=== PATIENT | female | born 1990 | race Caucasian/White ===

== ENCOUNTER 2017-06-12 10:16 | Emergency (ER) | END 2017-06-12 13:01 | disposition home or self-care (01) ==

== ENCOUNTER 2018-03-30 10:03 | Emergency (ER) | payer OTHER ==
[~2018-03-30] VITALS: Ht 160 cm; Wt 124.0 kg
[~2018-03-30 10:03] MED LIST: DOXY100T20 PO
[2018-03-30 10:10] VITALS: BP 108/71; PULSE 90; RESP 18; Ht 160 cm; Wt 124.0 kg
[2018-03-30] MEDS ORDERED: ONDANSETRON (ODT) 4 MG TAB ODT STA (10:44)
[2018-03-30] MEDS ORDERED: LOPE2CAP PO (10:54)
[2018-03-30] MEDS ORDERED: ACET500C5 PO (10:54)
--- NOTE | 2018-03-30 10:56 | ERD ---
ER Documentation Chief Complaint Chief Complaint diarrhea x 3 days HPI 27-year-old female presents with diarrhea for last 3 days. There is no blood or mucus. She has nausea without vomiting. She denies fever. She is here with her children with similar symptoms. Denies foreign travel or suspect food. Denies or dysuria. ROS All systems reviewed and are negative except as per history of present illness. Medications Home Meds Active Scripts Acetaminophen* (Tylophen*) 500 Mg Capsule, 1 CAP PO Q6H PRN for PAIN AND OR ELEVATED TEMP, #20 CAP Prov:SUNSHINE DA SILVA MD 03/30/18 Loperamide Hcl* (Imodium*) 2 Mg Capsule, 2 MG PO .AFTER EA LOOSE BM PRN for DIARRHEA, #10 TAB Prov:SUNSHINE DA SILVA MD 03/30/18 Doxycycline Hyclate* (Doxycycline Hyclate*) 100 Mg Tablet.dr, 100 MG PO BID for 10 Days, TAB Prov:SUNSHINE DA SILVA MD 06/12/17 Allergies Allergies: Coded Allergies: No Known Drug Allergies (Verified Allergy, Unknown, 03/30/18) PMhx/Soc History of Surgery: Yes (C SECTION ) Anesthesia Reaction: No Hx Neurological Disorder: No Hx Respiratory Disorders: No Hx Cardiac Disorders: No Hx Psychiatric Problems: No Hx Miscellaneous Medical Probl: No Hx Alcohol Use: No Hx Substance Use: No Hx Tobacco Use: No Smoking Status: Never smoker FmHx Family History: No diabetes, No coronary disease, No other Physical Exam Vitals Vital Signs Date Temp Pulse Resp B/P (MAP) Pulse Ox O2 O2 Flow FiO2 Time Delivery Rate 03/30/18 98.0 90 18 108/71 97 10:10 (83) Physical Exam Const: No acute distress. Obese. Head: Atraumatic Eyes: Normal Conjunctiva ENT: Normal External Ears, Nose and Mouth. Neck: Full range of motion. No meningismus. Resp: Clear to auscultation bilaterally Cardio: Regular rate and rhythm, no murmurs Abd: Soft, non tender, non distended. Normal bowel sounds Skin: No petechiae or rashes Back: No midline or flank tenderness Ext: No cyanosis, or edema Neur: Awake and alert Psych: Normal Mood and Affect Results 24 hrs Current Medications Medications Dose Sig/Aiyana Start Time Status Last (Trade) Ordered Route PRN Stop Time Admin Dose Reason Admin 650 mg ONCE ONCE 03/30/18 Acetaminophen PO 11:00 03/30/18 (Tylenol 11:01 Tab) Ondansetron 8 mg ONCE STAT 03/30/18 DC HCl (Zofran ODT 10:44 03/30/18 Odt) 10:45 Procedures/MDM Presents with diarrhea for 3 days with essentially normal exam. She has no signs of abdominal pain, shortness of breath, hypoxemia. Given the history and contacts he likely has viral gastroenteritis. Will treat with Imodium, Tylenol, further observation and home and return precautions. The patient was stable with no new complaints during the ER course. Clinically, there is no current evidence to suggest meningitis, sepsis, acute abdomen, pneumonia, stroke, acute coronary syndrome, pulmonary embolism, aortic dissection or any other emergent condition appearing to require further evaluation or hospitalization. Patient counseled regarding my diagnostic impression and care plan. Prior to discharge all questions answered. Pt agrees with treatment plan and understands strict return precautions. Pt is instructed to follow up with primary care provider within 24-48 hours. Precautionary instructions provided including instructions to return to the ER if not improving or for any worsening or changing symptoms or concerns. Departure Diagnosis: Primary Impression: Diarrhea Diarrhea type: unspecified type Qualified Codes: R19.7 - Diarrhea, unspecified Condition: Stable Patient Instructions: Treating Diarrhea, Diarrhea, Viral (Child) (Adult) Additional Instructions: Probablamente un virus que dura 2-4 browne. cheque otro vez en el proximo morales para mas simptomas- vomito, dolor, jyotsna, problemas con respirando, o con ling doctor primario. SUNSHINE DA SILVA MD Mar 30, 2018 10:56
[2018-03-30] MEDS ORDERED: ACETAMINOPHEN 325 MG TAB PO ONE (11:00)
== END 2018-03-30 11:09 | disposition home or self-care (01) ==
LOC: FTE 10:03
DX: R19.7 Diarrhea, unspecified (principal); R11.2 Nausea with vomiting, unspecified
CPT/HCPCS: Z7502; Z7610; 99283

== ENCOUNTER 2019-01-05 09:48 | Emergency (ER) | payer OTHER ==
[~2019-01-05] VITALS: Wt 129.0 kg
[~2019-01-05 09:48] MED LIST changes: +ACET500C5 PO; +AZIT250T PO; +D-ME473S2 PO; +DOXY-214 PO; -DOXY100T20 PO; +LOPE2CAP PO
[2019-01-05 09:55] VITALS: BP 140/78; PULSE 90; RESP 18
== END 2019-01-05 11:00 | disposition home or self-care (01) ==
LOC: FTE 09:48
DX: R05 Cough (principal)
CPT/HCPCS: 99283